=== PATIENT | male | born 2000 | race Hispanic/Latino ===

== ENCOUNTER 2022-08-28 06:51 | Emergency (ER) | payer OTHER ==
[~2022-08-28] VITALS: Ht 165.1 cm; Wt 88.3 kg
[2022-08-28] MEDS ORDERED: IBUP80TA PO (12:25)
[2022-08-28 12:47] VITALS: BP 140/81
== END 2022-08-28 14:04 | disposition home or self-care (01) ==
LOC: M ED 06:51
DX: S62.660A Nondisplaced fracture of distal phalanx of right index finger, initial encounter for closed fracture (principal); S60.121A Contusion of right index finger with damage to nail, initial encounter; W23.0XXA Caught, crushed, jammed, or pinched between moving objects, initial encounter; Y99.1 Military activity